=== PATIENT | male | born 1950 | race Caucasian/White ===

== ENCOUNTER 2022-04-01 10:16 | Outpatient (CLI) | payer OTHER | END 2022-04-01 10:17 | disposition home or self-care (01) | LOC: TBSIIMAG 10:16 | PROVIDERS: ATTEND Neurological Surgery | DX: M25.551 Pain in right hip (principal); M54.16 Radiculopathy, lumbar region; M16.11 Unilateral primary osteoarthritis, right hip; M25.451 Effusion, right hip; M70.71 Other bursitis of hip, right hip; S73.101A Unspecified sprain of right hip, initial encounter ==

== ENCOUNTER 2022-04-30 13:29 | Outpatient (CLI) | payer OTHER ==
[2022-04-30 16:22] LABS: #Basophils 0.1 10x3/uL (0.0-0.2); #Eosinphils 0.2 10x3/uL (0.0-0.5); #Monocytes 0.6 10x3/uL (0.0-1.1); #Neutrophils 3.8 10x3/uL (1.5-8.4); %Basophils 0.7 % (0.0-2.0); %Eosinophils 2.3 % (0.0-6.0); %Lymphocytes 37.9 % (18.0-47.0); %Monocytes 8.1 % (0.0-10.0); %Neutrophils 50.9 % (40.0-75.0); Hemoglobin 15.9 g/dL (13.5-17.5); Mean Corpuscular HGB CONC 34.7 g/dL (32.0-36.0); Mean Corpuscular Hemoglobin 33.3 pg (27.0-33.0); Mean Platelet Volume 11.4 fl (7.4-10.4); Platelet Count 241 10x3/uL (150-450); Red Blood Cell (RBC) Count 4.77 10x6/uL (4.32-5.72); White Blood Cell (WBC) Count 7.4 10x3/uL (3.5-10.5)
[2022-04-30 16:48] LABS: Anion Gap 14 mmol/L (10-20); BUN (Urea Nitrogen) 16 mg/dL (8.4-25.7); Calc. Creatinine Clearance 0 mL/min (70-130); Calcium 9.3 mg/dL (7.8-10.44); Carbon Dioxide 23 mmol/L (23-31); Chloride 106 mmol/L (98-107); Estimated GFR 79; Glucose 91 mg/dL (83-110); Potassium 4.1 mmol/L (3.5-5.1); Sodium 139 mmol/L (136-145)
[2022-04-30 16:52] LABS: INR-International Normal Ratio 0.9; PTT 25.9 sec (22.0-33.0); Prothrombin Time 10.3 sec (9.5-12.1)
== END 2022-04-30 13:30 | disposition home or self-care (01) ==
LOC: LABBT 13:29
PROVIDERS: ATTEND Orthopaedic Surgery
DX: Z01.818 Encounter for other preprocedural examination (principal); M16.11 Unilateral primary osteoarthritis, right hip; Z20.822 Contact with and (suspected) exposure to COVID-19
CPT/HCPCS: 80048; 85025; 85610; 85730; 87081; 87811; 93005; 93010

== ENCOUNTER 2022-05-05 09:00 | Observation (INO) | payer OTHER ==
[2022-05-04 11:35] VITALS: BMI 30.7
[2022-05-05] MEDS ORDERED: Sodium Chloride 0.9% 100 ML ONE ×2 (09:14→09:42)
[2022-05-05] MEDS ORDERED: CEFAZOLIN 2 GM VIAL ONE (09:14)
[2022-05-05] MEDS ORDERED: diphenhydrAMINE 25 MG CAP PO PRN (09:31)
[2022-05-05] MEDS ORDERED: HYDROcodone/Acetaminophen 10/325 mg Tablet PO PRN (09:31)
[2022-05-05] MEDS ORDERED: Acetaminophen 325 MG TAB PO PRN (09:31)
[2022-05-05] MEDS ORDERED: Promethazine HCl 25 MG/ML VIAL IM PRN ×2 (09:31→12:29)
[2022-05-05] MEDS ORDERED: Ondansetron PF 4 MG/2 ML Vial IVP PRN (09:31)
[2022-05-05] MEDS ORDERED: Fentanyl 100 MCG/2 ML VIAL SLOW IVP PRN ×2 (09:31)
[2022-05-05] MEDS ORDERED: Zolpidem Tartrate 5 MG TAB PO PRN (09:31)
[2022-05-05] MEDS ORDERED: Bupivacaine PF 0.5% 30 ML VIAL ONE (09:40)
[2022-05-05] MEDS ORDERED: Tranexamic Acid 1,000 MG/10 ML VIAL ONE (09:42)
[2022-05-05] MEDS ORDERED: Vancomycin (BATCH) 1.5 GRAM/300 ML BAG ONE (09:42)
[2022-05-05] MEDS ORDERED: Midazolam HCl 2 mg/2 ml Vial ONE ×2 (09:51→09:55)
[2022-05-05] MEDS ORDERED: Fentanyl 100 MCG/2 ML VIAL ONE ×2 (09:51→12:43)
[2022-05-05] MEDS ORDERED: Propofol 1,000 MG/100 ML VIAL IV ONE (09:55)
[2022-05-05] MEDS ORDERED: Phenylephrine 10 MG/ML VIAL ONE (09:55)
[2022-05-05] MEDS ORDERED: fentaNYL Citrate/PF 100 MCG/2 ML SYRINGE ONE (09:55)
[2022-05-05] MEDS ORDERED: Ketamine 50 MG/ML (10ML VIAL) ONE (09:55)
[2022-05-05] MEDS ORDERED: Bupivacaine HCl 0.5%/Epinephrine 1:200,000/PF 30 ml Vial ONE (10:25)
[2022-05-05] MEDS ORDERED: HYDROmorphone 2 MG/ML VIAL SLOW IVP PRN (12:29)
[2022-05-05] MEDS ORDERED: Ondansetron HCl/PF 4 MG/2 ML Vial IVP PRN (12:29)
[2022-05-05] MEDS ORDERED: Promethazine HCl 25 MG/ML VIAL IVPB PRN (12:29)
[2022-05-05] MEDS ORDERED: PACU-Morphine 4MG/ML VIAL SLOW IVP PRN (12:29)
[2022-05-05] MEDS ORDERED: hydrALAZINE 20 MG/ML VIAL ONE (12:37)
[2022-05-05] MEDS: Sodium Chloride 0.9% 1,000 ML IV SCH ×2 (14:10→19:44)
[2022-05-05] MEDS: Ketorolac Tromethamine 30 MG/ML VIAL IVP SCH ×2 (14:10→21:33)
[2022-05-05] MEDS: HYDROcodone/Acetaminophen 10/325 mg Tablet PO PRN ×2 (14:14→21:40)
[2022-05-05] MEDS: CEFAZOLIN 2 GM in Sodium Chloride 0.9% 100 ML IVPB SCH (18:04)
[2022-05-05] MEDS ORDERED: Non-Formulary Item 1 EACH (Latanoprost/Pf [Latanoprost 0.005% Eye Drop] 7.5 ML Drops) EA EYE SCH (21:00)
[2022-05-05] MEDS: Aspirin 81 mg Enteric Coated Tablet PO SCH (21:32)
[2022-05-05] MEDS: Senokot S 8.6-50 MG TAB PO SCH (21:33)
[2022-05-05] MEDS: Ferrous Gluconate 324 MG TAB PO SCH (21:33)
[2022-05-05] MEDS: Latanoprost 0.005% Ophth Soln 2.5 ml Bottle EA EYE SCH (21:33)
[2022-05-06] MEDS: CEFAZOLIN 2 GM in Sodium Chloride 0.9% 100 ML IVPB SCH (01:50)
[2022-05-06] MEDS: Sodium Chloride 0.9% 1,000 ML IV SCH ×2 (05:16→14:50)
[2022-05-06] MEDS: HYDROcodone/Acetaminophen 10/325 mg Tablet PO PRN ×2 (05:29→12:09)
[2022-05-06] MEDS: Ketorolac Tromethamine 30 MG/ML VIAL IVP SCH ×3 (05:29→20:05)
[2022-05-06 05:59] LABS: Hemoglobin 14.3 g/dL (14.0-18.0); Mean Corpuscular HGB CONC 33.8 g/dL (32.0-36.0); Mean Corpuscular Hemoglobin 34.3 pg (27.0-31.0); Mean Platelet Volume 8.1 fL (7.4-10.4); Platelet Count 185 thou/uL (130-400); RBC Distribution Width 11.5 % (11.5-14.5); Red Blood Cell (RBC) Count 4.19 mill/uL (4.70-6.10); White Blood Cell (WBC) Count 9.4 thou/uL (4.8-10.8)
[2022-05-06] MEDS: Ferrous Gluconate 324 MG TAB PO SCH ×2 (08:22→20:05)
[2022-05-06] MEDS: Senokot S 8.6-50 MG TAB PO SCH ×2 (08:22→20:05)
[2022-05-06] MEDS: Cyanocobalamin (Vitamin B-12) 1,000 MCG TAB PO SCH (08:22)
[2022-05-06] MEDS: Multivitamin W/ Minerals 1 TAB PO SCH (08:22)
[2022-05-06] MEDS: Aspirin 81 mg Enteric Coated Tablet PO SCH ×2 (08:22→20:05)
[2022-05-06] MEDS: Latanoprost 0.005% Ophth Soln 2.5 ml Bottle EA EYE SCH (20:05)
[2022-05-07] MEDS: Sodium Chloride 0.9% 1,000 ML IV SCH ×2 (02:08→11:32)
[2022-05-07] MEDS: Ketorolac Tromethamine 30 MG/ML VIAL IVP SCH ×2 (05:18→07:30)
[2022-05-07] MEDS: Cyanocobalamin (Vitamin B-12) 1,000 MCG TAB PO SCH (08:49)
[2022-05-07] MEDS: Ferrous Gluconate 324 MG TAB PO SCH (08:49)
[2022-05-07] MEDS: Senokot S 8.6-50 MG TAB PO SCH (08:49)
[2022-05-07] MEDS: Multivitamin W/ Minerals 1 TAB PO SCH (08:50)
[2022-05-07] MEDS: Aspirin 81 mg Enteric Coated Tablet PO SCH (08:50)
[2022-05-07] MEDS: HYDROcodone/Acetaminophen 10/325 mg Tablet PO PRN (08:50)
[2022-05-07 11:38] VITALS: BP 112/65; TEMP 98.6
== END 2022-05-07 14:10 | disposition home or self-care (01) ==
LOC: SDC 09:00 → SURG B 13:21
PROVIDERS: ADMIT Orthopaedic Surgery; ATTEND Orthopaedic Surgery
PROC: 0SR902A Replacement of Right Hip Joint with Metal on Polyethylene Synthetic Substitute, Uncemented, Open Approach (ICD-10-PCS; principal; 2022-05-05)
DX: M16.11 Unilateral primary osteoarthritis, right hip (principal); H40.9 Unspecified glaucoma; Z79.899 Other long term (current) drug therapy
CPT/HCPCS: 36415; 85027; C1776; J0360; J0690; J1885; J2250; J2370; J2405; J2704; J3010; J3370; J3490; S0020